=== PATIENT | female | born 1990 | race Caucasian/White ===

== ENCOUNTER 2017-02-05 14:56 | Emergency (ER) | payer MEDICAID, OTHER ==
[~2017-02-05 14:56] MED LIST: Z.0.NO CURRENT MEDS
--- NOTE | 2017-02-05 15:52 | PD ---
HPI Chief Complaint detox Date Seen: Feb 05, 2017 Time Seen: 15:45 Travel History International Travel<30 Days: No Contact w/Intl Traveler<30Days: No History of Present Illness HPI Patient is a 27 year old at 35 adn 5/7 weeks gestation by first trimester US (per pt report), EDC 03/07/2017, who presents to the OB ED with complaints of detox. She states she was using street oxycodone PO and snorting heroin before she was arrested at 3 months gestation. She was switched to methadone 105 mg daily while incarcerated and was released in October. She has continued methadone at that dose until 01/31/17. She was switched to oxycodone 15 mg PO every 4 hours, BuSpar unknown dose 3 times a day, Vistaril unknown dose 4 times daily PRN, and clonidine unknown dose 4 times daily PRN by Dr. Conley. She is feeling well today and denies any acute complaints but states last night she had withdrawal symptoms characterized by insomnia, diarrhea, and abdominal pain. She is not had any fevers, chills or vomiting. She denies leakage of fluid, vaginal bleeding, and contractions. She feels baby moving regularly. She denies DIAZ/N/V/D/fever/sick contacts/SOB/calf pain/ dizziness/seeing spots. Previous OB cares reportedly with Dr. Orta in [place] with last office visit in November. History Past Medical History Narrative Medical genital HSV Medical History: Denies Significant Hx Obstetric History Obstetric History [id number] miscarriages 2 elective abortions G6: CS for active herpetic outbreak, 7 years ago Past Surgical History Narrative Surgical Family History Family History: Negative Social History Narrative Social History living with family friend history heroin, oxycodone drug use incarcerated May - October 2016 Alcohol Use: No Tobacco Use: No Substance Abuse: Yes Allergies-Medications (Allergen,Severity, Reaction): Coded Allergies: No Known Allergies (Verified , 05/20/11) Home Meds Reported Medications Clonidine (Clonidine) Unknown Strength Tab, PO QID for Blood Pressure Management , #60 TAB 0 Refills 02/05/17 Buspirone (Buspirone) Unknown Strength Tab, PO BID for Anxiety, TAB 0 Refills 02/05/17 Hydroxyzine Pamoate (Vistaril) Unknown Strength Cap, PO QID, CAP 0 Refills 02/05/17 Oxycodone (Oxycodone) 15 Mg Tab, 15 MG PO Q4H Y for PAIN, TAB 0 Refills 02/05/17 Review of Systems Except as stated in HPI: all other systems reviewed are Neg Physical Exam Narrative GENERAL: Well-nourished, well-developed female in no apparent distress. SKIN: Warm and dry. No rashes or ecchymoses. HEAD: Normocephalic and atraumatic. EYES: No scleral icterus. No injection or drainage. ENT: No nasal drainage noted. Mucous membranes pink. Airway patent. NECK: Supple, trachea midline. No JVD. CARDIOVASCULAR: Regular rate and rhythm without murmurs, gallops, or rubs. RESPIRATORY: Breath sounds equal bilaterally. No accessory muscle use. ABDOMEN/GI: Gravid abdomen, nontender. Bowel sounds normal in all quadrants. GENITOURINARY: deferred External Genitalia: intact and normal in appearance Uterine Contractions: absent FHT's: Category: 1 Baseline:130s Reactive: 150s Variability: mod Decels: absent EXTREMITIES: No cyanosis or edema. BACK: Nontender without obvious deformity. No CVA tenderness. NEUROLOGICAL: Awake and alert. Motor and sensory grossly within normal limits. Five out of 5 muscle strength in all muscle groups. Normal speech. Data Data Vital Signs Reviewed: Yes (wnl) Orders Orders Vital Signs (Adult) .ON ADMISSION (02/05/17 15:43) ^ Labor Status (02/05/17 15:43) ^ Non Stress Test (02/05/17 15:43) ^ Hydration (02/05/17 15:43) MDM Medical Record Reviewed: Yes Narrative Course / MDM 27 year old at 35 and 5/7 weeks gestation by first trimester US (per pt report), EDC 03/07/2017, who presents to the OB ED with complaints of detox symptoms (diarrhea, abdominal pain) off methadone. Currently taking high dose oxycodone as noted in HPI. No contractions, Cat 1 tracing on exam. No infectious signs on evaluation. Intrauterine : Category 1 tracing Reassuring FHTs PN in [place] per report Obtain labs, OB US for HERBIE per Dr. Conley GBS unknown Substance Abuse: Consulted with Dr. Conley by phone. Patient is planning to go to [facility] and is in process of detoxification off methadone with oxycodone managed by Dr. Conley. Plan is to switch to Subutex prior to admission to [facility]. Dr. Conley to assume care of patient in February as patient is switching insurance at this time. Vital signs and monitoring within normal limits as noted above Will discharge patient home if US results reassuring DW Dr. Conley and Dr. Aguila Diagnosis Diagnosis: Primary Impression: 35 weeks gestation of Additional Impression: Methadone maintenance treatment affecting in third trimester Disposition: DISCHARGE HOME Condition: Stable Patient Instructions: Opioid Withdrawal (DC) Ruba Mcdonald MD R2 Feb 05, 2017 15:52
[2017-02-05] MEDS ORDERED: BUSP15TA PO (16:21)
[2017-02-05] MEDS ORDERED: VIST25CA PO (16:21)
[2017-02-05] MEDS ORDERED: CLON0.1T PO (16:21)
[2017-02-05] MEDS ORDERED: OXYC15TA PO (16:21)
[2017-02-05 18:28] LABS: AUTOMATED NEUTROPHIL # 9.2 TH/MM3 (1.8-7.7); BASOPHIL % 0.4 % (0.0-2.0); EOSINOPHIL # 0.2 TH/MM3 (0-0.4); EOSINOPHIL % 1.3 % (0.0-4.0); HEMATOCRIT 34.1 % (35.0-46.0); HEMOGLOBIN 12.1 GM/DL (11.6-15.3); LYMPH % 23.2 % (9.0-44.0); LYMPHOCYTE # 3.1 TH/MM3 (1.0-4.8); MEAN CELL VOLUME 84.3 FL (80.0-100.0); MEAN CORPUSCULAR HGB CONC 35.6 % (32.0-36.0); MEAN PLATELET VOLUME 8.2 FL (7.0-11.0); MONOCYTE # 0.8 TH/MM3 (0-0.9); NEUT % 69.1 % (16.0-70.0); PLATELET COUNT 269 TH/MM3 (150-450); RED BLOOD COUNT 4.05 MIL/MM3 (4.00-5.30); RED CELL DISTRIBUTION WIDTH 12.9 % (11.6-17.2); WHITE BLOOD COUNT 13.3 TH/MM3 (4.0-11.0)
[2017-02-06 10:16] LABS: HEPATITIS A AB IGM NEGATIVE (NEGATIVE); HEPATITIS B CORE AB IGM NEGATIVE (NEGATIVE); HEPATITIS B SURFACE ANTIGEN NEGATIVE (NEGATIVE); HEPATITIS C AB IgG NEGATIVE (NEGATIVE)
== END 2017-02-05 18:55 | disposition home or self-care (01) ==
LOC: HOBED 14:56
DX: O26.893 Other specified pregnancy related conditions, third trimester (principal); F11.23 Opioid dependence with withdrawal; Z3A.35 35 weeks gestation of pregnancy; Z79.899 Other long term (current) drug therapy
CPT/HCPCS: 59025; 76816; 76819; 80074; 80307; 85025; 86592; 86703; 86762; 86850; 86900; 86901

== ENCOUNTER 2017-02-11 11:53 | Inpatient (IN) | payer MEDICAID ==
[2017-02-11] VITALS (9 sets, daily range): BP systolic 94–121; BP diastolic 52–69; PULSE 77–109; RESP 16–18; TEMP 99.1
[~2017-02-11 11:53] MED LIST changes: +BUSP15TA PO; +CLON0.1T PO; +OXYC15TA PO; +VIST25CA PO; -Z.0.NO CURRENT MEDS
[2017-02-11] MEDS ORDERED: LORazepam 2 MG TAB PO ONE (12:30)
[2017-02-11] MEDS ORDERED: ACETAMINOPHEN 325 MG TAB PO PRN (12:30)
[2017-02-11] MEDS ORDERED: ONDANSETRON ODT 4 MG TAB PO PRN (12:30)
[2017-02-11] MEDS ORDERED: ALUMINUM/MAGNESIUM/SIMETH 30 ML CUP PO PRN (12:30)
[2017-02-11] MEDS ORDERED: SODIUM CHLORIDE 0.9% FLUSH 10 ML FLUSH IV FLUSH PRN (12:30)
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
[2017-02-11] MEDS: LACTATED RINGER'S 1000 ML INJ 1,000 ML IV SCH ×2 (13:30→15:04)
[2017-02-11] MEDS: BUPRENORPHINE HCL 8 MG SUBLINGUAL TAB SL SCH ×2 (13:42→19:36)
[2017-02-11] MEDS: BETAMETHASONE SOD PHOS/ACETATE SUSP 30 MG/5 ML VIAL IM SCH (13:43)
[2017-02-11 13:46] LABS: AUTOMATED NEUTROPHIL # 15.8 TH/MM3 (1.8-7.7); BASOPHIL # 0.1 TH/MM3 (0-0.2); BASOPHIL % 0.5 % (0.0-2.0); EOSINOPHIL % 0.2 % (0.0-4.0); LYMPHOCYTE # 2.3 TH/MM3 (1.0-4.8); MEAN CELL VOLUME 82.8 FL (80.0-100.0); MEAN CORPUSCULAR HEMOGLOBIN 28.5 PG (27.0-34.0); MEAN CORPUSCULAR HGB CONC 34.4 % (32.0-36.0); MEAN PLATELET VOLUME 7.7 FL (7.0-11.0); MONO % 3.6 % (0.0-8.0); MONOCYTE # 0.7 TH/MM3 (0-0.9); NEUT % 83.7 % (16.0-70.0); PLATELET COUNT 290 TH/MM3 (150-450); RED BLOOD COUNT 4.23 MIL/MM3 (4.00-5.30); RED CELL DISTRIBUTION WIDTH 13.3 % (11.6-17.2); WHITE BLOOD COUNT 18.8 TH/MM3 (4.0-11.0)
[2017-02-11 13:50] LABS: BILIRUBIN, URINE NEG (NEG); BLOOD, URINE NEG (NEG); GLUCOSE,URINE NEG (NEG); KETONE, URINE NEG (NEG); NITRITE,URINE NEG (NEG); SQUAMOUS EPITHELIAL CELL URINE 14 /hpf (0-5); TRANSITIONAL EPI CELLS, URINE <1 /hpf; URINE COLOR YELLOW (YELLW/STRAW); URINE LEUKOCYTE ESTERASE LARGE (NEG); WHITE BLOOD CELL CLUMPS RARE
[2017-02-11 14:14] LABS: ALBUMIN 2.7 GM/DL (3.4-5.0); ALT (GPT) 16 U/L (10-53); AST (GOT) 15 U/L (15-37); BICARBONATE 19.1 MEQ/L (21.0-32.0); BLOOD UREA NITROGEN 16 MG/DL (7-18); CALCIUM 8.8 MG/DL (8.5-10.1); CHLORIDE 111 MEQ/L (98-107); CREATININE 0.71 MG/DL (0.50-1.00); GLOMERULAR FILTRATION RATE 97 ML/MIN (>89); GLUCOSE,RANDOM 94 MG/DL (74-106); SODIUM (NA) 140 MEQ/L (136-145)
[2017-02-11 14:16] LABS: ALKALINE PHOSPHATASE 380 U/L (45-117); TOTAL BILIRUBIN ADULT 0.3 MG/DL (0.2-1.0); TOTAL PROTEIN 7.1 GM/DL (6.4-8.2)
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
[2017-02-11] MEDS: ZOLPIDEM TARTRATE 5 MG TAB PO PRN (20:50)
[2017-02-11] MEDS: SODIUM CHLORIDE 0.9% FLUSH 10 ML FLUSH IV FLUSH SCH (21:00)
[2017-02-11] MEDS ORDERED: BUPRENORPHINE HCL 8 MG SUBLINGUAL TAB SL SCH (22:00)
[2017-02-11] MEDS: cloNIDine HCL 0.1 MG TAB PO PRN (22:01)
[2017-02-12] VITALS (13 sets, daily range): BP systolic 106–124; BP diastolic 45–60; PULSE 85–102; RESP 16–20; TEMP 97.8–98.4
[2017-02-12] MEDS ORDERED: LORazepam 1 MG TAB PO ONE (01:45)
[2017-02-12] MEDS: BETAMETHASONE SOD PHOS/ACETATE SUSP 30 MG/5 ML VIAL IM SCH (01:48)
[2017-02-12] MEDS ORDERED: BUPRENORPHINE HCL 8 MG SUBLINGUAL TAB SL SCH (05:00)
--- NOTE | 2017-02-12 08:10 | PD.OB.ANTE ---
Subjective Diagnosis: (1) Third trimester (2) Opioid abuse (3) Previous delivery, antepartum Interval History 36 5/7 now post steroids x 2. No symptoms of withdrawal and comfortable at this time. questions about timing of delivery and where she will be (here, friend's home, [facility]) Objective Vital Signs Vital Signs Date Time Temp Pulse Resp B/P (MAP) Pulse Ox O2 Delivery O2 Flow Rate FiO2 02/12/17 01:22 98.0 02/12/17 01:21 97 112/60 (77) 02/12/17 01:20 18 02/11/17 19:40 99.1 18 02/11/17 17:00 18 02/11/17 16:36 97 94/52 (66) 02/11/17 16:30 109 02/11/17 15:00 16 02/11/17 14:31 77 104/60 (75) 02/11/17 12:57 18 02/11/17 12:30 81 121/69 (86) 02/11/17 12:25 97 Lab & Micro Results Test 02/11/17 13:30 White Blood Count 18.8 TH/MM3 Red Blood Count 4.23 MIL/MM3 Hemoglobin 12.0 GM/DL Hematocrit 35.0 % Mean Corpuscular Volume 82.8 FL Mean Corpuscular Hemoglobin 28.5 PG Mean Corpuscular Hemoglobin Concent 34.4 % Red Cell Distribution Width 13.3 % Platelet Count 290 TH/MM3 Mean Platelet Volume 7.7 FL Neutrophils (%) (Auto) 83.7 % Lymphocytes (%) (Auto) 12.0 % Monocytes (%) (Auto) 3.6 % Eosinophils (%) (Auto) 0.2 % Basophils (%) (Auto) 0.5 % Neutrophils # (Auto) 15.8 TH/MM3 Lymphocytes # (Auto) 2.3 TH/MM3 Monocytes # (Auto) 0.7 TH/MM3 Eosinophils # (Auto) 0.0 TH/MM3 Basophils # (Auto) 0.1 TH/MM3 CBC Comment DIFF FINAL Differential Comment Urine Color YELLOW Urine Turbidity HAZY Urine pH 7.0 Urine Specific [place] 1.017 Urine Protein TRACE mg/dL Urine Glucose (UA) NEG mg/dL Urine Ketones NEG mg/dL Urine Occult Blood NEG Urine Nitrite NEG Urine Bilirubin NEG Urine Urobilinogen LESS THAN 2.0 MG/DL Urine Leukocyte Esterase LARGE Urine WBC 4 /hpf Urine WBC Clumps RARE Urine Squamous Epithelial Cells 14 /hpf Urine Transitional Epithelial Cells <1 /hpf Microscopic Urinalysis Comment CULTURE INDICATED Blood Urea Nitrogen 16 MG/DL Creatinine 0.71 MG/DL Random Glucose 94 MG/DL Total Protein 7.1 GM/DL Albumin 2.7 GM/DL Calcium Level 8.8 MG/DL Alkaline Phosphatase 380 U/L Aspartate Amino Transf (AST/SGOT) 15 U/L Alanine Aminotransferase (ALT/SGPT) 16 U/L Total Bilirubin 0.3 MG/DL Sodium Level 140 MEQ/L Potassium Level 4.2 MEQ/L Chloride Level 111 MEQ/L Carbon Dioxide Level 19.1 MEQ/L Anion Gap 10 MEQ/L Estimat Glomerular Filtration Rate 97 ML/MIN Urine Opiates Screen NEG Urine Barbiturates Screen NEG Urine Amphetamines Screen NEG Urine Benzodiazepines Screen NEG Urine Cocaine Screen NEG Urine Cannabinoids Screen NEG Date/Time Source Procedure Growth Status 02/11/17 14:30 Throat Group A Streptococcus Screen Pending Received 02/11/17 13:30 Urine Clean Catch Urine Culture Pending Received Physical Exam GENERAL: Well-nourished, well-developed patient. CARDIOVASCULAR: Regular rate and rhythm without murmurs, gallops, or rubs. RESPIRATORY: Breath sounds equal bilaterally. No accessory muscle use. ABDOMEN/GI: Abdomen soft, non-tender. was 1/50/-1 last night strip reactive EXTREMITIES: No cyanosis or edema, non-tender, without signs of DVT. Assessment and Plan Problem List: (1) Third trimester ICD Codes: Z34.93 - Encounter for supervision of normal , unspecified , third trimester (2) Opioid abuse ICD Codes: F11.10 - Opioid abuse, uncomplicated (3) Previous delivery, antepartum ICD Codes: O34.219 - Maternal care for unspecified type scar from previous delivery Assessment and Plan Late trimester request to transition to buprenorphine --referred by SMA best performed with monitoring continuous Currently in active withdrawal and meeting criteria for buprenorphine induction support medications written monitoring anticipate discharge on buprenorphine to [facility] 02/11/17 18:40 reviewed we can increase the interval between the buprenorphine. discussed WARM vs returning to [facility] Dr. Jaffe has recommended delivery since HERBIE < 5 but I think it was from withdrawal. I would like to wait until Friday to get steroids in and to stabilize on subutex prior to delivery. She desires TOLAC ; may need to use cook balloon. Did deliver a non viable 20 week vaginally at 17 yoa. 02/12/17 0800 Continue 4 mg buprenorphine every 8 hours begin valtrex desires TOLAC oligo yesterday--repeat HERBIE today. Gilma Conley MD Feb 12, 2017 08:10
[2017-02-12] MEDS: SODIUM CHLORIDE 0.9% FLUSH 10 ML FLUSH IV FLUSH SCH ×2 (09:00→20:57)
[2017-02-12] MEDS ORDERED: MULTIVIT/MIN/PREN/FOL AC/IRON PRENATAL TAB PO SCH (09:00)
[2017-02-12] MEDS ORDERED: DOCUSATE SODIUM 100 MG CAP PO SCH (09:00)
[2017-02-12] MEDS: valACYclovir HCL 500 MG TAB PO SCH ×2 (09:00→20:57)
[2017-02-12] MEDS: cloNIDine HCL 0.1 MG TAB PO PRN (09:52)
[2017-02-12] MEDS: LACTATED RINGER'S 1000 ML INJ 1,000 ML IV SCH (11:00)
[2017-02-12] MEDS: BUPRENORPHINE HCL 8 MG SUBLINGUAL TAB SL SCH ×2 (11:33→19:36)
--- NOTE | 2017-02-12 13:21 | PD.OB.ANTE ---
Subjective Diagnosis: (1) Third trimester (2) Opioid abuse (3) Previous delivery, antepartum Interval History 36 5/7 HERBIE this am now 8 + cm. No indication for imminent delivery continue subutex and monitoring through tomorrow. back to [facility] tomorrow and will wait to hear from [facility] Objective Vital Signs Vital Signs Date Time Temp Pulse Resp B/P (MAP) Pulse Ox O2 Delivery O2 Flow Rate FiO2 02/12/17 09:00 98.4 16 02/12/17 08:47 100 106/59 (75) 02/12/17 01:22 98.0 02/12/17 01:21 97 112/60 (77) 02/12/17 01:20 18 02/11/17 19:40 99.1 18 02/11/17 17:00 18 02/11/17 16:36 97 94/52 (66) 02/11/17 16:30 109 02/11/17 15:00 16 02/11/17 14:31 77 104/60 (75) Lab & Micro Results Test 02/11/17 13:30 White Blood Count 18.8 TH/MM3 Red Blood Count 4.23 MIL/MM3 Hemoglobin 12.0 GM/DL Hematocrit 35.0 % Mean Corpuscular Volume 82.8 FL Mean Corpuscular Hemoglobin 28.5 PG Mean Corpuscular Hemoglobin Concent 34.4 % Red Cell Distribution Width 13.3 % Platelet Count 290 TH/MM3 Mean Platelet Volume 7.7 FL Neutrophils (%) (Auto) 83.7 % Lymphocytes (%) (Auto) 12.0 % Monocytes (%) (Auto) 3.6 % Eosinophils (%) (Auto) 0.2 % Basophils (%) (Auto) 0.5 % Neutrophils # (Auto) 15.8 TH/MM3 Lymphocytes # (Auto) 2.3 TH/MM3 Monocytes # (Auto) 0.7 TH/MM3 Eosinophils # (Auto) 0.0 TH/MM3 Basophils # (Auto) 0.1 TH/MM3 CBC Comment DIFF FINAL Differential Comment Urine Color YELLOW Urine Turbidity HAZY Urine pH 7.0 Urine Specific [place] 1.017 Urine Protein TRACE mg/dL Urine Glucose (UA) NEG mg/dL Urine Ketones NEG mg/dL Urine Occult Blood NEG Urine Nitrite NEG Urine Bilirubin NEG Urine Urobilinogen LESS THAN 2.0 MG/DL Urine Leukocyte Esterase LARGE Urine WBC 4 /hpf Urine WBC Clumps RARE Urine Squamous Epithelial Cells 14 /hpf Urine Transitional Epithelial Cells <1 /hpf Microscopic Urinalysis Comment CULTURE INDICATED Blood Urea Nitrogen 16 MG/DL Creatinine 0.71 MG/DL Random Glucose 94 MG/DL Total Protein 7.1 GM/DL Albumin 2.7 GM/DL Calcium Level 8.8 MG/DL Alkaline Phosphatase 380 U/L Aspartate Amino Transf (AST/SGOT) 15 U/L Alanine Aminotransferase (ALT/SGPT) 16 U/L Total Bilirubin 0.3 MG/DL Sodium Level 140 MEQ/L Potassium Level 4.2 MEQ/L Chloride Level 111 MEQ/L Carbon Dioxide Level 19.1 MEQ/L Anion Gap 10 MEQ/L Estimat Glomerular Filtration Rate 97 ML/MIN Urine Opiates Screen NEG Urine Barbiturates Screen NEG Urine Amphetamines Screen NEG Urine Benzodiazepines Screen NEG Urine Cocaine Screen NEG Urine Cannabinoids Screen NEG Date/Time Source Procedure Growth Status 02/11/17 14:30 Throat Group A Streptococcus Screen - Preliminary NO BETA STREPTOCOCCI ISOLATED AT 24 H... Resulted 02/11/17 13:30 Urine Clean Catch Urine Culture - Preliminary IMMATURE GROWTH - REINCUBATE Resulted Physical Exam GENERAL: Well-nourished, well-developed patient. CARDIOVASCULAR: Regular rate and rhythm without murmurs, gallops, or rubs. RESPIRATORY: Breath sounds equal bilaterally. No accessory muscle use. ABDOMEN/GI: Abdomen soft, non-tender. Fundus: [-] GENITOURINARY: External Genitalia: intact and normal in appearance Cervix: [-] Dilatation: [-] Effacement: [-] Station: [-] Presentation: [-] Membranes: [-] Uterine Contractions: [-] FHT's: Category: [-] Baseline: [-] Reactive: [-] Variability: [-] Decels: [-] EXTREMITIES: No cyanosis or edema, non-tender, without signs of DVT. Assessment and Plan Problem List: (1) Third trimester ICD Codes: Z34.93 - Encounter for supervision of normal , unspecified , third trimester (2) Opioid abuse ICD Codes: F11.10 - Opioid abuse, uncomplicated (3) Previous delivery, antepartum ICD Codes: O34.219 - Maternal care for unspecified type scar from previous delivery Assessment and Plan Late trimester request to transition to buprenorphine --referred by SMA best performed with monitoring continuous Currently in active withdrawal and meeting criteria for buprenorphine induction support medications written monitoring anticipate discharge on buprenorphine to [facility] 02/11/17 18:40 reviewed we can increase the interval between the buprenorphine. discussed [facility] vs returning to [facility] Dr. Jaffe has recommended delivery since HERBIE < 5 but I think it was from withdrawal. I would like to wait until Friday to get steroids in and to stabilize on subutex prior to delivery. She desires TOLAC ; may need to use cook balloon. Did deliver a non viable 20 week vaginally at 19 yoa. 02/12/17 0800 Continue 4 mg buprenorphine every 8 hours begin valtrex desires TOLAC oligo yesterday--repeat HERBIE today. Gilma Conley MD Feb 12, 2017 13:21
--- NOTE | 2017-02-12 17:20 | PD.OB.ANTE ---
Subjective Diagnosis: (1) Third trimester (2) Opioid abuse (3) Previous delivery, antepartum Interval History Distraught after being told by crop setting out machine operator Jaja that she may not be able to take infant home due to prior child with TPR.. This is not the case. Also upset after discussion with Dr. Jenkins from psychiatry. we will add back her buspar and address depression more completely when baby delivered. Objective Vital Signs Vital Signs Date Time Temp Pulse Resp B/P (MAP) Pulse Ox O2 Delivery O2 Flow Rate FiO2 02/12/17 13:53 18 02/12/17 13:05 85 124/48 (73) 02/12/17 09:00 98.4 16 02/12/17 08:47 100 106/59 (75) 02/12/17 01:22 98.0 02/12/17 01:21 97 112/60 (77) 02/12/17 01:20 18 02/11/17 19:40 99.1 18 Lab & Micro Results Date/Time Source Procedure Growth Status 02/11/17 14:30 Throat Group A Streptococcus Screen - Preliminary NO BETA STREPTOCOCCI ISOLATED AT 24 H... Resulted 02/11/17 13:30 Urine Clean Catch Urine Culture - Preliminary IMMATURE GROWTH - REINCUBATE Resulted Physical Exam GENERAL: Well-nourished, well-developed patient. CARDIOVASCULAR: Regular rate and rhythm without murmurs, gallops, or rubs. RESPIRATORY: Breath sounds equal bilaterally. No accessory muscle use. ABDOMEN/GI: Abdomen soft, non-tender. Fundus: [-] GENITOURINARY: External Genitalia: intact and normal in appearance Cervix: [-] Dilatation: [-] Effacement: [-] Station: [-] Presentation: [-] Membranes: [-] Uterine Contractions: [-] FHT's: Category: [-] Baseline: [-] Reactive: [-] Variability: [-] Decels: [-] EXTREMITIES: No cyanosis or edema, non-tender, without signs of DVT. Assessment and Plan Problem List: (1) Third trimester ICD Codes: Z34.93 - Encounter for supervision of normal , unspecified , third trimester (2) Opioid abuse ICD Codes: F11.10 - Opioid abuse, uncomplicated (3) Previous delivery, antepartum ICD Codes: O34.219 - Maternal care for unspecified type scar from previous delivery Assessment and Plan Late trimester request to transition to buprenorphine --referred by SMA best performed with monitoring continuous Currently in active withdrawal and meeting criteria for buprenorphine induction support medications written monitoring anticipate discharge on buprenorphine to [facility] 02/11/17 18:40 reviewed we can increase the interval between the buprenorphine. discussed WARM vs returning to [facility] Dr. Jaffe has recommended delivery since HERBIE < 5 but I think it was from withdrawal. I would like to wait until Friday to get steroids in and to stabilize on subutex prior to delivery. She desires TOLAC ; may need to use cook balloon. Did deliver a non viable 20 week vaginally at 19 yoa. 02/12/17 0800 Continue 4 mg buprenorphine every 8 hours begin valtrex desires TOLAC oligo yesterday--repeat HERBIE today. Gilma Conley MD Feb 12, 2017 17:20
[2017-02-12] MEDS ORDERED: BUPR8SUB SL (17:22)
--- NOTE | 2017-02-12 17:23 | HHI.DCPOC ---
Discharge Care Plan Report Symptoms to Your Doctor -Temperature above 100.5 degrees -Redness, of incision or excessive or foul smelling drainage -Unusual pain or calf pain -Increased vaginal bleeding -Painful or difficulty urinating -Feelings of extreme sadness or anxiety after 2 weeks Goals to Promote Your Health * To prevent worsening of your condition and complications * To maintain your health at the optimal level Directions to Meet Your Goals Take your medications as prescribed Follow your dietary instruction Follow activity as directed Ensure plenty of rest for recovery Drink fluids for hydration Keep your appointments as scheduled Take your immunizations and boosters as scheduled If your symptoms worsen call your PCP, if no PCP go to Urgent Care Center or Emergency Room Smoking is Dangerous to Your Health. Avoid second hand smoke Call the 24-hour crisis hotline for domestic abuse at Gilma Conley MD Feb 12, 2017 17:23
[2017-02-12] MEDS: busPIRone HCL 10 MG TAB PO SCH ×2 (17:39→17:40)
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
[2017-02-12] MEDS: ZOLPIDEM TARTRATE 5 MG TAB PO PRN (20:57)
[2017-02-13] MEDS ORDERED: ACETAMIN 325 MG/BUTALBITAL 50 MG/CAFFEINE 40 MG TAB PO ONE ×2 (03:30→08:30)
[2017-02-13 03:38] VITALS: BP 121/66; PULSE 68
[2017-02-13 03:40] VITALS: RESP 18; TEMP 97.4
[2017-02-13] MEDS: SODIUM CHLORIDE 0.9% FLUSH 10 ML FLUSH IV FLUSH SCH (07:40)
[2017-02-13 07:59] VITALS: TEMP 98.3
[2017-02-13 08:00] VITALS: RESP 18
[2017-02-13 08:01] VITALS: BP 136/55; PULSE 70
--- NOTE | 2017-02-13 08:17 | PD.OB.ANTE ---
Subjective Diagnosis: (1) Third trimester (2) Opioid abuse (3) Previous delivery, antepartum Interval History 36 6/7 week IUP now on buprenorphine 12-16 mg daily, buspar and valtrex surveillance reassuring WARM not available until after the first. Has a place to stay and be cared for with family friend Today complaining of severe DIAZ (worst ever) but ordering breakfast and moving around room No leaking, bleeding. GFM Occasional UCs Objective Vital Signs Vital Signs Date Time Temp Pulse Resp B/P (MAP) Pulse Ox O2 Delivery O2 Flow Rate FiO2 02/13/17 03:40 97.4 18 02/13/17 03:38 68 121/66 (84) 02/12/17 22:00 18 02/12/17 21:54 101 112/45 (67) 02/12/17 19:24 97.8 02/12/17 19:23 98 18 119/59 (79) 02/12/17 17:42 98.0 20 02/12/17 17:42 102 113/58 (76) 02/12/17 14:00 98.0 02/12/17 13:53 18 02/12/17 13:05 85 124/48 (73) 02/12/17 09:00 98.4 16 02/12/17 08:47 100 106/59 (75) Lab & Micro Results Date/Time Source Procedure Growth Status 02/11/17 14:30 Throat Group A Streptococcus Screen - Preliminary NO BETA STREPTOCOCCI ISOLATED AT 24 H... Resulted 02/11/17 13:30 Urine Clean Catch Urine Culture - Preliminary IMMATURE GROWTH - REINCUBATE Resulted Physical Exam GENERAL: Well-nourished, well-developed patient. strip reactive with accels and no decels was 50% 1/-2 Assessment and Plan Problem List: (1) Third trimester ICD Codes: Z34.93 - Encounter for supervision of normal , unspecified , third trimester (2) Opioid abuse ICD Codes: F11.10 - Opioid abuse, uncomplicated (3) Previous delivery, antepartum ICD Codes: O34.219 - Maternal care for unspecified type scar from previous delivery Assessment and Plan Late trimester request to transition to buprenorphine --referred by SMA best performed with monitoring continuous Currently in active withdrawal and meeting criteria for buprenorphine induction support medications written monitoring anticipate discharge on buprenorphine to [facility] 02/11/17 18:40 reviewed we can increase the interval between the buprenorphine. discussed WARM vs returning to [facility] Dr. Jaffe has recommended delivery since HERBIE < 5 but I think it was from withdrawal. I would like to wait until Friday to get steroids in and to stabilize on subutex prior to delivery. She desires TOLAC ; may need to use cook balloon. Did deliver a non viable 20 week vaginally at 19 yoa. 02/12/17 0800 Continue 4 mg buprenorphine every 8 hours begin valtrex desires TOLAC oligo yesterday--repeat HERBIE today. 02/13/17 0800 To [facility] today on meds as described follow up in one week in my office explained needs to stop at office today to get UDS and contract sign that are needed for us to obtain pre authorization and coverage for her subutex. [facility] will cover until insurance covers. desires TOLAC and will consider if favorable after 39 weeks. Gilma Conley MD Feb 13, 2017 08:17
[2017-02-13] MEDS: BUPRENORPHINE HCL 8 MG SUBLINGUAL TAB SL SCH (08:28)
== END 2017-02-13 08:41 | disposition home or self-care (01) | DRG 781 ==
LOC: H2EA 11:53 → OBSVTOIN 12:36
PROVIDERS: ADMIT Obstetrics & Gynecology; ATTEND Obstetrics & Gynecology
DX: O99.323 Drug use complicating pregnancy, third trimester (principal); O99.89 Other specified diseases and conditions complicating pregnancy, childbirth and the puerperium; F11.23 Opioid dependence with withdrawal; O34.219 Maternal care for unspecified type scar from previous cesarean delivery; O99.333 Smoking (tobacco) complicating pregnancy, third trimester; O99.343 Other mental disorders complicating pregnancy, third trimester; F41.9 Anxiety disorder, unspecified; F32.9 Major depressive disorder, single episode, unspecified; F43.21 Adjustment disorder with depressed mood; F43.10 Post-traumatic stress disorder, unspecified; Z63.8 Other specified problems related to primary support group; R11.2 Nausea with vomiting, unspecified; R19.7 Diarrhea, unspecified; Z3A.36 36 weeks gestation of pregnancy
CPT/HCPCS: 76819; 80053; 80307; 81001; 85025; 87081; 87086; 87880; G0481; J0702; J7120

== ENCOUNTER 2017-02-25 18:15 | Emergency (ER) | payer MEDICAID, OTHER ==
[~2017-02-25 18:15] MED LIST changes: +BUPR8SUB SL; -OXYC15TA PO
--- NOTE | 2017-02-25 19:04 | PD ---
HPI Chief Complaint Contractions Date Seen: Feb 25, 2017 Time Seen: 18:59 Travel History International Travel<30 Days: No Contact w/Intl Traveler<30Days: No Known Affected Area: No History of Present Illness HPI 27-year-old at 38 weeks and 4 days comes in complaining of contractions that began after her vaginal examination this morning. Patient was noted to be 1 cm this morning and her exam and thereafter had some mild spotting followed by cramping irregularly throughout the day. No, cases during this . Maintain on Subutex taking care of by Dr. Conley. Weeks Gestation: 38 (38.4) Para: 2 : 4 : 1 History Past Medical History Medical History: Denies Significant Hx Obstetric History Obstetric History section 1 at 22 weeks due to hydrops Past Surgical History Narrative Surgical section Family History Family History: Negative Social History Alcohol Use: No Tobacco Use: No Substance Abuse: Yes Allergies-Medications (Allergen,Severity, Reaction): Coded Allergies: No Known Allergies (Verified Allergy, Unknown, 02/11/17) Home Meds Active Scripts Buprenorphine (Buprenorphine) 8 Mg Subl, 4 MG SL Q8H for maintenance for addiction ther for 14 Days, #21 TAB Prov:Gilma Conley MD 02/12/17 Reported Medications Clonidine (Clonidine) Unknown Strength Tab, PO QID for Blood Pressure Management , #60 TAB 0 Refills 02/05/17 Buspirone (Buspirone) Unknown Strength Tab, PO BID for Anxiety, TAB 0 Refills 02/05/17 Hydroxyzine Pamoate (Vistaril) Unknown Strength Cap, PO QID, CAP 0 Refills 02/05/17 Review of Systems Except as stated in HPI: all other systems reviewed are Neg Physical Exam Narrative GENERAL: Well-nourished, well-developed patient. SKIN: Warm and dry. HEAD: Normocephalic and atraumatic. EYES: No scleral icterus. No injection or drainage. ENT: No nasal drainage noted. Mucous membranes pink. Airway patent. NECK: Supple, trachea midline. No JVD. CARDIOVASCULAR: Regular rate and rhythm without murmurs, gallops, or rubs. RESPIRATORY: Breath sounds equal bilaterally. No accessory muscle use. ABDOMEN/GI: Abdomen soft, non-tender, bowel sounds present, no rebound, no guarding Gravid to [37-] weeks size Fundal Height: [-] GENITOURINARY: External Genitalia: intact and normal in appearance BUS glands: [Normal-] Cervix: [-] Posterior Dilatation: [-] 1 Effacement: [-] 50 Station: [-] -3 Presentation: [-] Vertex Membranes: [intact or ruptured] intact Uterine Contractions: [-] Rare contractions every 10-15 minutes FHT's: Category: [-] 1 Baseline: [-] 140 Reactive: [-] Moderate Variability: [-] Moderate Decels: [-] Absent EXTREMITIES: No cyanosis or edema. BACK: Nontender without obvious deformity. No CVA tenderness. NEUROLOGICAL: Awake and alert. Motor and sensory grossly within normal limits. Five out of 5 muscle strength in all muscle groups. Normal speech. Data Data Vital Signs Reviewed: Yes [facility] Medical Record Reviewed: Yes Plan 27-year-old who is at 38 weeks 4 days with false labor Follow-up with OB provider as scheduled Diagnosis Diagnosis: Primary Impression: 38 weeks gestation of Additional Impressions: Opioid abuse Previous section complicating , antepartum condition or complication False labor after 37 completed weeks of gestation Disposition: 01 DISCHARGE HOME Stacey Aguila MD Feb 25, 2017 19:04
== END 2017-02-25 19:33 | disposition home or self-care (01) ==
LOC: HOBED 18:15
DX: O47.1 False labor at or after 37 completed weeks of gestation (principal); O99.323 Drug use complicating pregnancy, third trimester; F11.10 Opioid abuse, uncomplicated; O34.219 Maternal care for unspecified type scar from previous cesarean delivery; Z3A.38 38 weeks gestation of pregnancy
CPT/HCPCS: 59025

== ENCOUNTER 2017-03-04 06:39 | Inpatient (IN) | payer MEDICAID, OTHER ==
[~2017-03-04] VITALS: Ht 180.3 cm; Wt 74.0 kg
[2017-03-04] VITALS (119 sets, daily range): BP systolic 101–153; BP diastolic 43–91; PULSE 85–137; RESP 16–20; TEMP 97.6–102
[2017-03-04] MEDS ORDERED: LACTATED RINGER'S 1000 ML INJ 1,000 ML IV PRN (08:18)
[2017-03-04] MEDS ORDERED: LIDOCAINE HCL 1% 50 ML VIAL INFIL PRN (08:30)
[2017-03-04] MEDS ORDERED: SODIUM CHLORID 0.9% 500 ML INJ 500 ML IV PRN (08:30)
[2017-03-04] MEDS ORDERED: CITRIC ACID-SODIUM CITRATE LIQ 30 ML UDC PO SCH (08:30)
[2017-03-04] MEDS ORDERED: MINERAL OIL 10 ML VIAL TOPICAL PRN (08:30)
[2017-03-04] MEDS ORDERED: OXYTOCIN 30 UNITS-500ML PREMIX 500 ML IV ONE (08:30)
[2017-03-04] MEDS ORDERED: OXYTOCIN 30 UNITS-500ML PREMIX 500 ML IV PRN (08:30)
[2017-03-04] MEDS ORDERED: LIDOCAINE HCL 1% 50 ML VIAL I-DERMAL PRN (08:30)
--- NOTE | 2017-03-04 08:33 | HHI.HP ---
HPI Chief Complaint 27 yo swf at 39 4/7 weeks desiring TOLAC. She is subutex maintained for opioid abuse disorder and compliant. She had a loss, delivered vaginally and a subsequent section with Dr. Weinstein for distress. States she became dependent on percocet after that delivery and then descended to IV dilaudid. She was a resident and graduated from [facility] prior to this delivery. She was referred to me by Yashira Randolph of [facility] to see if I could transition to buprenorphine and prepare for residential treatment this . The patient has chosen outpatient therapy until after delivery. She has severe PTSD over loss of first child and traumatic loss of FOB of this child. She desires TOLAC with a minimally favorable cervix today. Travel History International Travel<30 Days: No Contact w/Intl Traveler<30Days: No Known Affected Area: No History of Present Illness HPI No PTL, Diabetes or HTN late care Weeks Gestation: 39 History Past Medical History Narrative Medical Opioid use disorder MDD PTSD Medical History: Denies Significant Hx Past Surgical History Narrative Surgical section term x 1 documented LTSC Family History Family History: Negative Social History Alcohol Use: No Tobacco Use: Yes Substance Abuse: Yes Allergies-Medications (Allergen,Severity, Reaction): Coded Allergies: No Known Allergies (Verified Allergy, Unknown, 02/11/17) Home Meds Active Scripts Buprenorphine (Buprenorphine) 8 Mg Subl, 4 MG SL Q8H for maintenance for addiction ther for 14 Days, #21 TAB Prov:Gilma Conley MD 02/12/17 Reported Medications Clonidine (Clonidine) Unknown Strength Tab, PO QID for Blood Pressure Management , #60 TAB 0 Refills 02/05/17 Buspirone (Buspirone) Unknown Strength Tab, PO BID for Anxiety, TAB 0 Refills 02/05/17 Hydroxyzine Pamoate (Vistaril) Unknown Strength Cap, PO QID, CAP 0 Refills 02/05/17 Review of Systems General / Constitutional: No: Fever, Weight Gain, Chills, Other Physical Exam Narrative GENERAL: Well-nourished, well-developed patient. SKIN: Warm and dry. HEAD: Normocephalic and atraumatic. EYES: No scleral icterus. No injection or drainage. ENT: No nasal drainage noted. Mucous membranes pink. Airway patent. NECK: Supple, trachea midline. No JVD. CARDIOVASCULAR: Regular rate and rhythm without murmurs, gallops, or rubs. RESPIRATORY: Breath sounds equal bilaterally. No accessory muscle use. BREASTS: Bilateral exam showed no masses , no retractions, no nipple discharge. ABDOMEN/GI: Abdomen soft, non-tender, bowel sounds present, no rebound, no guarding Gravid to [-] weeks size Fundal Height: [-] GENITOURINARY: 1-2/long/posterior and arom clear EFW 7 pounds pelvis clinically adequate Strip category 1 so far EXTREMITIES: No cyanosis or edema. BACK: Nontender without obvious deformity. No CVA tenderness. NEUROLOGICAL: Awake and alert. Motor and sensory grossly within normal limits. Five out of 5 muscle strength in all muscle groups. Normal speech. Caprini VTE Risk Assessment Caprini VTE Risk Assessment: No/Low Risk (score <= 1) Caprini Risk Assessment Model Point Value = 1 Point Value = 2 Point Value = 3 Point Value = 5 Age 41-60 Minor surgery BMI > 25 kg/m2 Swollen legs Varicose veins or History of unexplained or recurrent spontaneous Oral contraceptives or hormone replacement Sepsis (< 1 month) Serious lung disease, including pneumonia (< 1 month) Abnormal pulmonary function Acute myocardial infarction Congestive heart failure (< 1 month) History of inflammatory bowel disease Medical patient at bed rest Age 61-74 Arthroscopic surgery Major open surgery (> 45 min) Laparoscopic surgery (> 45 min) Malignancy Confined to bed (> 72 hours) Immobilizing plaster cast Central venous access Age >= 75 History of VTE Family history of VTE Factor V Leiden Prothrombin [id number] Lupus anticoagulant Anticardiolipin antibodies Elevated serum homocysteine Heparin-induced thrombocytopenia Other congenital or acquired thrombophilia Stroke (< 1 month) Elective arthroplasty Hip, pelvis, or leg fracture Acute spinal cord injury (< 1 month) Prophylaxis Regimen Total Risk Factor Score Risk Level Prophylaxis Regimen 0-1 Low Early ambulation 2 Moderate Order ONE of the following: *Sequential Compression Device (SCD) *Heparin 5000 units SQ BID 3-4 Higher Order ONE of the following medications: *Heparin 5000 units SQ TID *Enoxaparin/Lovenox 40 mg SQ daily (WT < 150 kg, CrCl > 30 mL/min) *Enoxaparin/Lovenox 30 mg SQ daily (WT < 150 kg, CrCl > 10-29 mL/min) *Enoxaparin/Lovenox 30 mg SQ BID (WT < 150 kg, CrCl > 30 mL/min) AND/OR *Sequential Compression Device (SCD) 5 or more Highest Order ONE of the following medications: *Heparin 5000 units SQ TID (Preferred with Epidurals) *Enoxaparin/Lovenox 40 mg SQ daily (WT < 150 kg, CrCl > 30 mL/min) *Enoxaparin/Lovenox 30 mg SQ daily (WT < 150 kg, CrCl > 10-29 mL/min) *Enoxaparin/Lovenox 30 mg SQ BID (WT < 150 kg, CrCl > 30 mL/min) AND *Sequential Compression Device (SCD) Data Data Orders Orders Admit To Inpatient (03/04/17 ) Code Status (03/04/17 08:18) Vital Signs (Adult) .Per protocol (03/04/17 08:18) Heart (03/04/17 08:18) Amnioinfusion (03/04/17 08:18) Urinary Catheter Management .ONCE (03/04/17 08:18) Diet Liquid (03/04/17 Breakfast) Lactated Ringer's 1000 Ml Inj (Lr 1000 M (03/04/17 08:18) Lactated Ringer's 1000 Ml Inj (Lr 1000 M (03/04/17 08:18) Sodium Chlorid 0.9% 500 Ml Inj (Ns 500 M (03/04/17 08:30) Sodium Chlor 0.9% 1000 Ml Inj (Ns 1000 M (03/04/17 08:38) Lidocaine 1% Inj (50 Ml) (Xylocaine 1% I (03/04/17 08:30) Citric Acid-Sodium Citrate Liq (Bicitra (03/04/17 08:30) Fentanyl Inj (Fentanyl Inj) (03/04/17 08:30) Fentanyl Inj (Fentanyl Inj) (03/04/17 08:30) Complete Blood Count With Diff (03/04/17 08:18) Hold Clot (03/04/17 08:18) Abo/Rh Blood Type (03/04/17 08:18) Urinalysis - C+S If Indicated (03/04/17 08:18) Drug Screen, Random Urine (03/04/17 08:18) Type And Screen (1/16/18 08:18) Resp Oxygen Non Rebreathe Mask (03/04/17 ) ^ Epidural / Intrathecal Infus (03/04/17 08:18) Oxytocin 30 Units-500ml Premix (Pitocin (03/04/17 08:30) Lidocaine 1% Inj (50 Ml) (Xylocaine 1% I (03/04/17 08:30) Light Mineral Oil (Muri-Lube Oil) (03/04/17 08:30) ^ Non Stress Test (03/04/17 08:18) Response To Medication .Post New Med Administration, Reaction (03/04/17 08:18) ^ Discontinue Medication (03/04/17 08:18) Oxytocin 30 Units-500ml Premix (Pitocin (03/04/17 08:30) Inpatient Certification (03/04/17 ) Specimen To Be Collected PRN (03/04/17 08:18) Specimen To Be Collected PRN (03/04/17 08:18) Buprenorphine (Buprenorphine) (03/04/17 09:00) Buspirone (Buspar) (03/04/17 09:00) Assessment/Plan Assessment and Plan term for TOLAC aware of risks, benefits and alternatives can change mind any time continue subutex epidural and pit as indicated Gilma Conley MD Mar 04, 2017 08:33
[2017-03-04] MEDS ORDERED: SODIUM CHLOR 0.9% 1000 ML INJ 1,000 ML IV PRN (08:38)
[2017-03-04] MEDS ORDERED: LIDOCAINE HCL 1% 30 ML VIAL INFIL PRN (09:00)
[2017-03-04] MEDS ORDERED: LIDOCAINE HCL 1% 30 ML VIAL I-DERMAL PRN (09:00)
[2017-03-04 09:03] LABS: BASOPHIL # 0.1 TH/MM3 (0-0.2); BASOPHIL % 0.7 % (0.0-2.0); EOSINOPHIL # 0.1 TH/MM3 (0-0.4); EOSINOPHIL % 1.2 % (0.0-4.0); HEMATOCRIT 32.3 % (35.0-46.0); HEMOGLOBIN 11.3 GM/DL (11.6-15.3); LYMPH % 28.9 % (9.0-44.0); LYMPHOCYTE # 3.3 TH/MM3 (1.0-4.8); MEAN CELL VOLUME 83.7 FL (80.0-100.0); MEAN CORPUSCULAR HEMOGLOBIN 29.4 PG (27.0-34.0); MEAN CORPUSCULAR HGB CONC 35.1 % (32.0-36.0); MEAN PLATELET VOLUME 8.2 FL (7.0-11.0); MONO % 7.1 % (0.0-8.0); MONOCYTE # 0.8 TH/MM3 (0-0.9); NEUT % 62.1 % (16.0-70.0); PLATELET COUNT 248 TH/MM3 (150-450); RED BLOOD COUNT 3.86 MIL/MM3 (4.00-5.30); RED CELL DISTRIBUTION WIDTH 14.2 % (11.6-17.2); WHITE BLOOD COUNT 11.3 TH/MM3 (4.0-11.0)
[2017-03-04] MEDS: LACTATED RINGER'S 1000 ML INJ 1,000 ML IV SCH ×4 (09:27→23:26)
[2017-03-04 09:29] LABS: BILIRUBIN, URINE NEG (NEG); BLOOD, URINE SMALL (NEG); GLUCOSE,URINE NEG (NEG); KETONE, URINE NEG (NEG); MUCUS URINE FEW /lpf (OCC); NITRITE,URINE NEG (NEG); SQUAMOUS EPITHELIAL CELL URINE 21 /hpf (0-5); URINE COLOR YELLOW (YELLW/STRAW); URINE LEUKOCYTE ESTERASE TRACE (NEG)
[2017-03-04 09:31] LABS: BACTERIA, URINE FEW /hpf
[2017-03-04] MEDS: BUPRENORPHINE HCL 8 MG SUBLINGUAL TAB SL SCH ×4 (09:31→22:25)
[2017-03-04] MEDS: busPIRone HCL 10 MG TAB PO SCH ×2 (09:31→22:25)
[2017-03-04] MEDS ORDERED: cloNIDine HCL 0.1 MG TAB PO PRN (16:30)
[2017-03-04] MEDS ORDERED: fentaNYL 2MCG-BUPIV 0.125% INJ 100 ML ONE (17:44)
--- NOTE | 2017-03-04 18:07 | PD.LABORPN ---
Subjective Subjective getting very painful strip reassuring on 14 mu/min pitocin Objective Vital Signs Vital Signs Date Time Temp Pulse Resp B/P (MAP) Pulse Ox O2 Delivery O2 Flow Rate FiO2 03/04/17 17:53 153/90 (111) 03/04/17 17:53 95 03/04/17 17:50 103 03/04/17 17:45 107 03/04/17 16:55 101 03/04/17 16:50 92 03/04/17 16:45 99 03/04/17 16:10 109 03/04/17 16:10 105 117/72 (87) 03/04/17 16:05 105 03/04/17 15:50 101 03/04/17 15:45 105 03/04/17 15:10 98 03/04/17 15:05 105 03/04/17 15:04 107 147/91 (109) 03/04/17 15:00 95 03/04/17 14:55 94 03/04/17 14:50 95 03/04/17 14:45 92 03/04/17 14:37 97 132/86 (101) 03/04/17 14:35 100 03/04/17 14:30 102 03/04/17 14:15 98 03/04/17 14:10 89 03/04/17 14:05 94 03/04/17 14:04 94 134/88 (103) 03/04/17 14:00 95 03/04/17 13:55 102 03/04/17 13:50 104 03/04/17 13:45 96 03/04/17 13:37 92 127/81 (96) 03/04/17 13:35 93 03/04/17 13:30 96 03/04/17 13:25 94 03/04/17 13:20 96 03/04/17 13:15 94 03/04/17 13:00 98.2 03/04/17 12:55 86 03/04/17 12:50 91 03/04/17 12:45 85 03/04/17 12:25 87 03/04/17 12:20 89 03/04/17 12:15 96 03/04/17 11:59 91 131/71 (91) 03/04/17 11:55 91 03/04/17 11:50 92 03/04/17 11:45 100 03/04/17 11:40 98 03/04/17 11:35 94 03/04/17 11:33 95 127/81 (96) 03/04/17 11:30 101 03/04/17 11:25 95 03/04/17 11:20 101 03/04/17 11:15 97.8 03/04/17 10:57 99 129/73 (91) 03/04/17 10:55 105 03/04/17 10:50 96 03/04/17 10:45 102 03/04/17 10:40 112 03/04/17 10:35 103 03/04/17 10:30 104 03/04/17 10:25 98 03/04/17 10:20 102 03/04/17 10:15 106 03/04/17 10:10 104 03/04/17 10:05 108 Objective per RN -3/60%/2 cm softer strip reassuring Weeks Gestation: 39 Gest Age Assessed Date: Mar 04, 2017 Pt started active labor?: Yes Active labor start date: Mar 04, 2017 Active labor start time: 08:00 Medical induction of labor?: Yes Medical induction start date: Mar 04, 2017 Medical induction start time: 08:00 Artificial rupture of membrane: Yes Artificial ROM date: Mar 04, 2017 Artifical ROM time: 08:00 Assessment/Plan Assessment and Plan will dicuss options: no cervical change since 8 am with arom. on 14 mu/min pit Needs IUPC if desires to continue will discuss that I am leaving town at 5 am. risks, benefits and expectations of continuing to work toward active labor vs repeat C/S discussed. Giving her some time to decide. Gilma Conley MD Mar 04, 2017 18:07
[2017-03-04] MEDS ORDERED: ePHEDrine/NS 25 MG/5 ML SYRINGE IV PUSH PRN (19:00)
[2017-03-04] MEDS ORDERED: NO SYSTEM NARCOTICS PRN (19:00)
[2017-03-04] MEDS ORDERED: DO NOT ADMINISTER ANTICOAGULANTS PRN (19:00)
[2017-03-04] MEDS: fentaNYL 2MCG-BUPIV 0.125% 100 ML EPIDURAL SCH (19:09)
--- NOTE | 2017-03-04 19:33 | PD.LABORPN ---
Subjective Subjective Has done very well since epidural in place Objective Vital Signs Vital Signs Date Time Temp Pulse Resp B/P (MAP) Pulse Ox O2 Delivery O2 Flow Rate FiO2 03/04/17 19:09 16 03/04/17 19:01 120 101/43 (62) 03/04/17 18:45 117 116/62 (80) 03/04/17 18:30 98.2 115 102/58 (73) 03/04/17 18:26 16 03/04/17 18:25 118 03/04/17 18:25 107/66 (80) 03/04/17 18:20 111/63 (79) 03/04/17 18:20 104 03/04/17 18:15 128 126/64 (84) 03/04/17 18:15 104 03/04/17 18:12 100 128/69 (88) 03/04/17 18:10 112 125/56 (79) 03/04/17 18:10 96 03/04/17 18:07 102 149/79 (102) 03/04/17 18:05 99 03/04/17 18:00 109 03/04/17 17:55 99 03/04/17 17:53 153/90 (111) 03/04/17 17:53 95 03/04/17 17:50 103 03/04/17 17:45 107 03/04/17 16:55 101 03/04/17 16:50 92 03/04/17 16:45 99 03/04/17 16:30 98.2 18 03/04/17 16:10 109 03/04/17 16:10 105 117/72 (87) 03/04/17 16:05 105 03/04/17 15:50 101 03/04/17 15:45 105 03/04/17 15:10 98 03/04/17 15:05 105 03/04/17 15:04 107 147/91 (109) 03/04/17 15:00 97.6 18 03/04/17 15:00 95 03/04/17 14:55 94 03/04/17 14:50 95 03/04/17 14:45 92 03/04/17 14:37 97 132/86 (101) 03/04/17 14:35 100 03/04/17 14:30 102 03/04/17 14:15 98 03/04/17 14:10 89 03/04/17 14:05 94 03/04/17 14:04 94 134/88 (103) 03/04/17 14:00 95 03/04/17 13:55 102 03/04/17 13:50 104 03/04/17 13:45 96 03/04/17 13:37 92 127/81 (96) 03/04/17 13:35 93 03/04/17 13:30 96 03/04/17 13:25 94 03/04/17 13:20 96 03/04/17 13:15 94 03/04/17 13:00 98.2 03/04/17 12:55 86 03/04/17 12:50 91 03/04/17 12:45 85 03/04/17 12:25 87 03/04/17 12:20 89 03/04/17 12:15 96 03/04/17 11:59 91 131/71 (91) 03/04/17 11:55 91 03/04/17 11:50 92 03/04/17 11:45 100 03/04/17 11:40 98 03/04/17 11:35 94 03/04/17 11:33 95 127/81 (96) 03/04/17 11:30 101 Objective 3-4/90/-1 anterior and well applied strip reactive contractions every 2 minutes and labor adequate with IUPC in place Weeks Gestation: 39 Gest Age Assessed Date: Mar 04, 2017 Pt started active labor?: Yes Active labor start date: Mar 04, 2017 Active labor start time: 08:00 Medical induction of labor?: Yes Medical induction start date: Mar 04, 2017 Medical induction start time: 08:00 Artificial rupture of membrane: Yes Artificial ROM date: Mar 04, 2017 Artifical ROM time: 08:00 Assessment/Plan Problem List: (1) Third trimester ICD Codes: Z34.93 - Encounter for supervision of normal , unspecified , third trimester (2) Adjustment disorder with depressed mood ICD Codes: F43.21 - Adjustment disorder with depressed mood (3) Opioid abuse ICD Codes: F11.10 - Opioid abuse, uncomplicated (4) Previous delivery, antepartum ICD Codes: O34.219 - Maternal care for unspecified type scar from previous delivery Assessment and Plan continue subutex and buspar through delivery and and pain medication is independent of this. ([place] use of ofirmev, toradol and if needed percocet 10 every four (this will override the subutex and keep subutex going) anticipate IVÁN Hallie is aware that I am leaving for a flight at 5 am. If undelivered will ask Dr. Aguila or Dr. Oakley to step in. Gilma Conley MD Mar 04, 2017 19:32
[2017-03-04] MEDS ORDERED: BUPR8SUB SL (19:40)
[2017-03-04] MEDS ORDERED: BUSP10TA PO (19:40)
[2017-03-04] MEDS ORDERED: CLON.1 PO (19:40)
--- NOTE | 2017-03-04 19:40 | HHI.DCPOC ---
Discharge Care Plan Report Symptoms to Your Doctor -Temperature above 100.5 degrees -Redness, of incision or excessive or foul smelling drainage -Unusual pain or calf pain -Increased vaginal bleeding -Painful or difficulty urinating -Feelings of extreme sadness or anxiety after 2 weeks Goals to Promote Your Health * To prevent worsening of your condition and complications * To maintain your health at the optimal level Directions to Meet Your Goals Take your medications as prescribed Follow your dietary instruction Follow activity as directed Ensure plenty of rest for recovery Drink fluids for hydration Keep your appointments as scheduled Take your immunizations and boosters as scheduled If your symptoms worsen call your PCP, if no PCP go to Urgent Care Center or Emergency Room Smoking is Dangerous to Your Health. Avoid second hand smoke Call the 24-hour crisis hotline for domestic abuse at Gilma Conley MD Mar 04, 2017 19:40
[2017-03-04] MEDS ORDERED: ACETAMINOPHEN 325 MG TAB PO PRN (22:45)
[2017-03-04] MEDS ORDERED: BUPIVACAINE HCL PF 0.25% 10 ML VIAL ONE (23:13)
[2017-03-04] MEDS ORDERED: LIDOCAINE 2%/EPINEPHrine PF 1:200,000 20ML SDV ONE (23:13)
[2017-03-04] MEDS ORDERED: ceFAZolin 2 GM PREMIX 50 ML IV SCH (23:15)
[2017-03-05] VITALS (17 sets, daily range): BP systolic 94–146; BP diastolic 50–80; PULSE 104–135; RESP 16–26; TEMP 97.5–102; O2SAT 96–98
[2017-03-05] MEDS: fentaNYL 2MCG-BUPIV 0.125% 100 ML EPIDURAL SCH (00:20)
[2017-03-05] MEDS ORDERED: OXYTOCIN 30 UNITS-500ML PREMIX 500 ML IV ONE (01:00)
[2017-03-05] MEDS ORDERED: SODIUM CHLORIDE 0.9% FLUSH 10 ML FLUSH IV FLUSH PRN (01:00)
[2017-03-05] MEDS ORDERED: ACETAMINOPHEN 1000 MG/100 ML 100 ML IV ONE (01:00)
[2017-03-05] MEDS ORDERED: SIMETHICONE 80 MG CHEWABLE TAB PO PRN (01:00)
[2017-03-05] MEDS ORDERED: ZOLPIDEM TARTRATE 5 MG TAB PO PRN (01:00)
[2017-03-05] MEDS ORDERED: ONDANSETRON HCL 4 MG/2 ML VIAL IV PUSH PRN (01:00)
[2017-03-05] MEDS ORDERED: oxyCODONE/ACETAMINOPHEN 5 MG/325 MG TAB PO PRN (01:00)
[2017-03-05] MEDS ORDERED: KETOROLAC TROMETHAMINE 60 MG/2 ML (IM) VIAL IM PRN (01:00)
[2017-03-05] MEDS ORDERED: ACETAMINOPHEN 325 MG TAB PO PRN (01:00)
--- NOTE | 2017-03-05 01:00 | PD.LABORPN ---
Subjective Subjective Has been comfortable with her epidural febrile and feeling warm Objective Vital Signs Vital Signs Date Time Temp Pulse Resp B/P (MAP) Pulse Ox O2 Delivery O2 Flow Rate FiO2 03/05/17 00:35 18 03/05/17 00:30 130 104/58 (73) 03/05/17 00:20 20 03/05/17 00:03 20 03/05/17 00:00 122 114/50 (71) 03/04/17 23:58 102.0 03/04/17 23:45 20 03/04/17 23:30 137 120/61 (80) 03/04/17 23:18 128 126/70 (88) 03/04/17 23:15 20 03/04/17 23:00 129 121/68 (85) 03/04/17 22:52 102.0 03/04/17 22:33 20 03/04/17 22:30 124 121/62 (81) 03/04/17 22:04 20 03/04/17 22:01 128 123/81 (95) 03/04/17 21:30 100.2 03/04/17 21:30 128 20 119/65 (83) 03/04/17 21:00 105 03/04/17 21:00 138/61 (86) 03/04/17 20:45 18 03/04/17 20:30 107 03/04/17 20:30 126/72 (90) 03/04/17 20:01 118/90 (99) 03/04/17 20:01 106 03/04/17 20:00 18 03/04/17 19:45 101 133/74 (93) 03/04/17 19:30 105/75 (85) 03/04/17 19:30 102 03/04/17 19:30 18 03/04/17 19:15 132 106/60 (75) 03/04/17 19:09 16 03/04/17 19:01 120 101/43 (62) 03/04/17 18:45 117 116/62 (80) 03/04/17 18:30 98.2 115 102/58 (73) 03/04/17 18:26 16 03/04/17 18:25 118 03/04/17 18:25 107/66 (80) 03/04/17 18:20 111/63 (79) 03/04/17 18:20 104 03/04/17 18:15 128 126/64 (84) 03/04/17 18:15 104 03/04/17 18:12 100 128/69 (88) 03/04/17 18:10 112 125/56 (79) 03/04/17 18:10 96 03/04/17 18:07 102 149/79 (102) 03/04/17 18:05 99 03/04/17 18:00 109 03/04/17 17:55 99 03/04/17 17:53 153/90 (111) 03/04/17 17:53 95 03/04/17 17:50 103 03/04/17 17:45 107 Objective 8-9 /90/-1 with caput and knot on head FHR 180's with diminished variability and small variables UCs every 2 minutes off pitocin and adequate Weeks Gestation: 39 Gest Age Assessed Date: Mar 04, 2017 Pt started active labor?: Yes Active labor start date: Mar 04, 2017 Active labor start time: 08:00 Medical induction of labor?: Yes Medical induction start date: Mar 04, 2017 Medical induction start time: 08:00 Artificial rupture of membrane: Yes Artificial ROM date: Mar 04, 2017 Artifical ROM time: 08:00 Assessment/Plan Problem List: (1) Third trimester ICD Codes: Z34.93 - Encounter for supervision of normal , unspecified , third trimester (2) Adjustment disorder with depressed mood ICD Codes: F43.21 - Adjustment disorder with depressed mood (3) Opioid abuse ICD Codes: F11.10 - Opioid abuse, uncomplicated (4) Previous delivery, antepartum ICD Codes: O34.219 - Maternal care for unspecified type scar from previous delivery Assessment and Plan no descent in last several hours. Concern over category 2-3 strip No loss of station but no descent despite IUPC documented adequate labor. Very febrile despite ancef and tylenol. Do not feel will deliver vaginally within the hour and therefore will proceed with repeat section. Will do a TAP block after delivered. Gilma Conley MD Mar 05, 2017 01:00
[2017-03-05] MEDS ORDERED: MORPHINE SULFATE PF 5 MG/10 ML VIAL ONE (01:04)
--- NOTE | 2017-03-05 01:09 | PD.OB.DELI ---
Procedure Note Section Procedure Pre Op Diagnosis: (1) tachycardia affecting management of mother (2) Failure of descent in labor, delivered, current hospitalization (3) Adjustment disorder with depressed mood (4) Opioid abuse (5) Third trimester (6) Previous delivery, antepartum Post Op Diagnosis: (1) Adjustment disorder with depressed mood (2) Opioid abuse (3) Third trimester (4) tachycardia affecting management of mother (5) Failure of descent in labor, delivered, current hospitalization (6) Previous delivery, antepartum Performed by Gilma Conley Procedure: Repeat Low Transverse Sec Indication for delivery: Nonreassuring heart tracing Informed consent obtained: For anesthesia, For procedure Confirmed correct: Patient, Procedure, Site, Time-out taken Anesthesia: Epidural, Other (TAP block) Medication prior to procedure: As documented in eMAR Monitoring during procedure: Blood pressure monitoring, doppler, Pulse oximetry Urinary catheter: Inserted using sterile technique, To dependent drainage, ml urine output Sterile preparation: Duraprep, In usual fashion Position: Supine with wedge to right side Operative Features Skin Incision: Pfannenstiel Uterine Incision: Low transverse w/knife / blunt ext Membranes Ruptured: Previously Presentation: Other (left occiput transverse with significant cone) Delivery date: Mar 05, 2017 Delivery time: 01:59 Delivery of infant: Assisted : Male One Minute : 9 Five Minute : 9 Weight: 6 1 Status of : Viable, Cord blood, Umbilical cord, Nursery present Placenta delivered: Intact, Sent to pathology Medications: Antibiotics, Oxytocin Estimated blood loss: 500 Procedure tolerated: Well Maternal Complications: Fever Maternal Condition: Stable Condition: Stable (dictated) Procedure in detail dictated anticipate Gilma Vergara MD Mar 05, 2017 01:09
[2017-03-05] MEDS ORDERED: DEXMEDETOMIDINE HCL 200 MCG/2 ML VIAL ONE (01:39)
[2017-03-05] MEDS ORDERED: BUPIVACAINE HCL PF 0.25% 30 ML VIAL ONE (01:39)
[2017-03-05] MEDS ORDERED: EPINEPHrine HCL PF/SF (1:1000) 1 MG/ML AMP I-OCULAR ONE (01:40)
[2017-03-05] MEDS ORDERED: DEXAMETHASONE SOD PHOS PF 10 MG/ML VIAL ONE (01:40)
[2017-03-05] MEDS: oxyCODONE/ACETAMINOPHEN 5 MG/325 MG TAB PO PRN ×3 (09:51→20:19)
[2017-03-05] MEDS: LACTATED RINGER'S 1000 ML INJ 1,000 ML IV SCH ×2 (10:00→18:18)
[2017-03-05] MEDS: SODIUM CHLORIDE 0.9% FLUSH 10 ML FLUSH IV FLUSH SCH (10:00)
[2017-03-05] MEDS ORDERED: OXYTOCIN 30 UNITS-500ML PREMIX 500 ML IV PRN (11:00)
[2017-03-05] MEDS: busPIRone HCL 10 MG TAB PO SCH ×2 (11:05→23:48)
[2017-03-05] MEDS: BUPRENORPHINE HCL 8 MG SUBLINGUAL TAB SL SCH ×4 (11:06→23:48)
[2017-03-05] MEDS: SERTRALINE HCL 100 MG TAB PO SCH (11:06)
[2017-03-05] MEDS ORDERED: LIDOCAINE 2%/EPINEPHrine PF 1:200,000 20ML SDV INFIL ONE (12:00)
[2017-03-05] MEDS ORDERED: LACTATED RINGER'S 1000 ML INJ 1,000 ML IV ONE (12:00)
[2017-03-05] MEDS ORDERED: ONDANSETRON HCL 4 MG/2 ML VIAL IV ONE (12:00)
[2017-03-05] MEDS ORDERED: KETOROLAC TROMETHAMINE 30 MG/ML (IVP) VIAL IV PUSH ONE (12:00)
[2017-03-05] MEDS ORDERED: DEXAMETHASONE SOD PHOS 4 MG/ML VIAL IV ONE (12:00)
[2017-03-05] MEDS ORDERED: OXYTOCIN 10 UNIT/ML AMP IV ONE (12:00)
[2017-03-05] MEDS ORDERED: PHENYLEPH/NS 1000 MCG/10 ML SYR IV ONE (12:00)
[2017-03-05] MEDS: IBUPROFEN 600 MG TAB PO PRN ×2 (14:28→20:19)
[2017-03-05] MEDS: DOCUSATE SODIUM 50 MG/SENNA 8.6 MG TAB PO PRN (20:18)
[2017-03-05] MEDS: cloNIDine HCL 0.1 MG TAB PO PRN (23:47)
[2017-03-06] MEDS: oxyCODONE/ACETAMINOPHEN 5 MG/325 MG TAB PO PRN ×6 (01:24→22:02)
[2017-03-06 04:00] VITALS: BP 109/69; PULSE 103; RESP 18; O2SAT 97
[2017-03-06] MEDS: cloNIDine HCL 0.1 MG TAB PO PRN ×2 (05:42→19:45)
[2017-03-06] MEDS: IBUPROFEN 600 MG TAB PO PRN ×4 (05:42→23:32)
[2017-03-06] MEDS: BUPRENORPHINE HCL 8 MG SUBLINGUAL TAB SL SCH ×5 (05:42→21:49)
[2017-03-06 05:54] LABS: AUTOMATED NEUTROPHIL # 18.2 TH/MM3 (1.8-7.7); BASOPHIL % 0.1 % (0.0-2.0); EOSINOPHIL % 0.1 % (0.0-4.0); HEMATOCRIT 23.3 % (35.0-46.0); LYMPH % 14.3 % (9.0-44.0); LYMPHOCYTE # 3.3 TH/MM3 (1.0-4.8); MEAN CORPUSCULAR HEMOGLOBIN 28.5 PG (27.0-34.0); MEAN CORPUSCULAR HGB CONC 34.3 % (32.0-36.0); MEAN PLATELET VOLUME 7.6 FL (7.0-11.0); MONOCYTE # 1.4 TH/MM3 (0-0.9); NEUT % 79.5 % (16.0-70.0); PLATELET COUNT 194 TH/MM3 (150-450); RED CELL DISTRIBUTION WIDTH 14.5 % (11.6-17.2); WHITE BLOOD COUNT 22.9 TH/MM3 (4.0-11.0)
[2017-03-06 08:00] VITALS: BP 99/65; PULSE 114; RESP 18; TEMP 97.8
--- NOTE | 2017-03-06 08:45 | HHI.OB ---
Subjective Post Operative Day: 1 Remarks complains of pain not adequately controlled despite maintenance suboxone and addition of Percocet & motrin; wants to know what other alternatives; pt is ambulating around room, talking on her cell phone and holding infant in no acute distress when c/o pain Objective Vitals/I&O Vital Signs Date Time Temp Pulse Resp B/P (MAP) Pulse Ox O2 Delivery O2 Flow Rate FiO2 03/06/17 04:00 103 18 109/69 (82) 97 03/05/17 23:57 98.2 113 18 146/74 (98) 96 03/05/17 20:00 97.5 104 20 138/77 (97) 97 03/05/17 16:00 98.1 106 22 133/70 (91) 03/05/17 15:30 97.7 109 18 135/77 (96) Result Diagram: 03/06/17 0500 Objective Remarks GENERAL: Well-nourished, well-developed patient. CARDIOVASCULAR: Regular rate and rhythm without murmurs, gallops, or rubs. RESPIRATORY: Breath sounds equal bilaterally. No accessory muscle use. ABDOMEN/GI: Abdomen soft, non-tender, bowel sounds present. Incision: bandage Clean, dry and intact. Fundus: Firm, non-tender at umbilicus. GENITOURINARY: Light bleeding. EXTREMITIES: No cyanosis or edema, non-tender, without signs of DVT. Medications and IVs Current Medications Medications (Trade) Dose Ordered Sig/Eddie Route Start Time Stop Time Status Last Admin Oxytocin 500 ml @ 100 mls/hr UNSCH X1 PRN IV 03/05/17 11:00 03/06/17 10:59 (NS Flush) 2 ml BID IV FLUSH 03/05/17 09:00 03/05/17 10:00 (NS Flush) 2 ml UNSCH PRN IV FLUSH 03/05/17 01:00 (Mylicon Chew) 80 mg QID PRN PO 03/05/17 01:00 (Tylenol) 650 mg Q6H PRN PO 03/05/17 01:00 (Motrin) 600 mg Q6H PRN PO 03/05/17 01:00 03/06/17 05:42 (Percocet 5-325 Mg) 1 tab Q4H PRN PO 03/05/17 01:00 (Percocet 5-325 Mg) 2 tab Q4H PRN PO 03/05/17 01:00 03/06/17 05:41 (Opal-Colace) 2 tab Q12H PRN PO 03/05/17 01:00 03/05/17 20:18 (Ambien) 5 mg HS PRN PO 03/05/17 01:00 (M-M-R Ii Inj) 0.5 ml ONCE ONCE SQ 03/06/17 16:00 03/06/17 16:01 (Boostrix Inj) 0.5 ml ONCE ONCE IM 03/06/17 16:00 03/06/17 16:01 03/05/17 20:20 (Zofran Inj) 4 mg Q6H PRN IV PUSH 03/05/17 01:00 (Zoloft) 100 mg DAILY PO 03/05/17 09:00 03/05/17 11:06 (Catapres) 0.1 mg Q6H PRN PO 03/05/17 01:00 03/06/17 05:42 (Flu (Quadrivalent) Vaccine Inj) 0.5 ml ONCE ONCE IM 03/06/17 10:00 03/06/17 10:01 03/05/17 20:30 (Buspar) 10 mg Q12H PO 03/06/17 11:00 (Buprenorphine) 4 mg 0900,1200,1800,2100 SL 03/06/17 09:00 Assessment/Plan Problem List: (1) S/P repeat low transverse ICD Codes: Z98.891 - History of uterine scar from previous surgery Status: Acute (2) Adjustment disorder with depressed mood ICD Codes: F43.21 - Adjustment disorder with depressed mood Status: Chronic (3) Opioid abuse ICD Codes: F11.10 - Opioid abuse, uncomplicated Status: Chronic (4) Previous delivery, antepartum ICD Codes: O34.219 - Maternal care for unspecified type scar from previous delivery Status: Chronic Assessment and Plan pt of Dr. Conley's, on subutex therapy for h/o opioid addiction, POD#1 for repeat LTCD after failed TOLAC POD#1 states pain not well controlled, will contact Dr. Conley to see if any additional recommendations; pt ambulating, voiding, walking around room, pain complaint does not match situation under bili lights not meeting d/c criteria anticipate d/c POD#3 Discharge Planning POD#3 Jessie Perdue MD Mar 06, 2017 08:45
[2017-03-06] MEDS: SODIUM CHLORIDE 0.9% FLUSH 10 ML FLUSH IV FLUSH SCH (09:00)
[2017-03-06] MEDS: DOCUSATE SODIUM 50 MG/SENNA 8.6 MG TAB PO PRN (09:46)
[2017-03-06] MEDS: SERTRALINE HCL 100 MG TAB PO SCH (09:46)
[2017-03-06] MEDS ORDERED: INFLUENZA VIRUS VACCINE (QUADRIVALENT) 0.5 ML SYR IM ONE (10:00)
[2017-03-06] MEDS: busPIRone HCL 10 MG TAB PO SCH ×2 (11:40→23:32)
[2017-03-06] MEDS ORDERED: MEASLES, MUMPS, RUBELLA VACCINE 0.5 ML VIAL SQ ONE (16:00)
[2017-03-06] MEDS ORDERED: DIPHTH/TETANUS/ACEL PERTUSSIS (BOOSTER) 0.5 ML VIAL/PFS IM ONE (16:00)
[2017-03-06 19:45] VITALS: BP 131/73; PULSE 97; RESP 16; TEMP 97.6
[2017-03-07] MEDS: DOCUSATE SODIUM 50 MG/SENNA 8.6 MG TAB PO PRN ×2 (02:49→15:47)
[2017-03-07] MEDS: oxyCODONE/ACETAMINOPHEN 5 MG/325 MG TAB PO PRN ×5 (02:50→19:56)
[2017-03-07] MEDS: IBUPROFEN 600 MG TAB PO PRN ×3 (07:12→21:34)
[2017-03-07] MEDS ORDERED: PERC5TAB12 PO (07:58)
[2017-03-07 08:00] VITALS: BP 115/67; PULSE 88; RESP 16; TEMP 98.1; O2SAT 97
--- NOTE | 2017-03-07 08:04 | HHI.OB ---
Subjective Post Operative Day: 2 Remarks doing well, pain she states is elevated but also states she feels well to go home, in no distress, slept well, VB < menses, TPO no n/v, + flatus. Objective Vitals/I&O Vital Signs Date Time Temp Pulse Resp B/P (MAP) Pulse Ox O2 Delivery O2 Flow Rate FiO2 03/06/17 19:45 97.6 97 16 131/73 (92) 03/06/17 08:00 97.8 114 18 03/06/17 08:00 99/65 (76) Result Diagram: 03/06/17 0500 Objective Remarks GENERAL: Well-nourished, well-developed patient. CARDIOVASCULAR: Regular rate and rhythm without murmurs, gallops, or rubs. RESPIRATORY: Breath sounds equal bilaterally. No accessory muscle use. ABDOMEN/GI: Abdomen soft, non-tender, bowel sounds present. Incision: Clean, dry and intact. Fundus: Firm, non-tender at umbilicus. GENITOURINARY: Light bleeding. EXTREMITIES: No cyanosis or edema, non-tender, without signs of DVT. Medications and IVs Current Medications Medications (Trade) Dose Ordered Sig/Eddie Route Start Time Stop Time Status Last Admin (NS Flush) 2 ml BID IV FLUSH 03/05/17 09:00 03/05/17 10:00 (NS Flush) 2 ml UNSCH PRN IV FLUSH 03/05/17 01:00 (Mylicon Chew) 80 mg QID PRN PO 03/05/17 01:00 03/07/17 07:12 (Tylenol) 650 mg Q6H PRN PO 03/05/17 01:00 (Motrin) 600 mg Q6H PRN PO 03/05/17 01:00 03/07/17 07:12 (Percocet 5-325 Mg) 1 tab Q4H PRN PO 03/05/17 01:00 (Percocet 5-325 Mg) 2 tab Q4H PRN PO 03/05/17 01:00 03/07/17 07:11 (Opal-Colace) 2 tab Q12H PRN PO 03/05/17 01:00 03/07/17 02:49 (Ambien) 5 mg HS PRN PO 03/05/17 01:00 (Zofran Inj) 4 mg Q6H PRN IV PUSH 03/05/17 01:00 (Zoloft) 100 mg DAILY PO 03/05/17 09:00 03/06/17 09:46 (Catapres) 0.1 mg Q6H PRN PO 03/05/17 01:00 03/06/17 19:45 (Buspar) 10 mg Q12H PO 03/06/17 11:00 03/06/17 23:32 (Buprenorphine) 4 mg 0900,1200,1800,2100 SL 03/06/17 09:00 03/06/17 21:49 Assessment/Plan Problem List: (1) S/P repeat low transverse ICD Codes: Z98.891 - History of uterine scar from previous surgery Status: Acute (2) Adjustment disorder with depressed mood ICD Codes: F43.21 - Adjustment disorder with depressed mood Status: Chronic (3) Opioid abuse ICD Codes: F11.10 - Opioid abuse, uncomplicated Status: Chronic (4) Previous delivery, antepartum ICD Codes: O34.219 - Maternal care for unspecified type scar from previous delivery Status: Chronic Assessment and Plan 27 yo s/p scheduled RLTCS after failed TOLAC 1. POD#2: AF, VSS, states pain not well controlled but clinically not in pain, pt opioid dependent as an outpt, will d/c with #24 percocet for breakthrough and pt to continue her home subutex 16mg /d in divided doses. Clinically ready for d/c and pt seems motivated to do so. Discussed and postop expectations and precautions. Anticipate d/c today vs tomorrow. Post op CBC noted, pt asymptomatic. - desires circ, did not prepay, she will arrange as an outpatient. 2. MDD / GIOVANNI: continue home meds Eric Greenwood MD Mar 07, 2017 08:04
[2017-03-07] MEDS: SERTRALINE HCL 100 MG TAB PO SCH (08:58)
[2017-03-07] MEDS: BUPRENORPHINE HCL 8 MG SUBLINGUAL TAB SL SCH ×4 (08:58→21:34)
[2017-03-07] MEDS: busPIRone HCL 10 MG TAB PO SCH ×2 (11:46→23:37)
[2017-03-07] MEDS: cloNIDine HCL 0.1 MG TAB PO PRN (18:26)
[2017-03-07 20:00] VITALS: BP 97/60; PULSE 104; RESP 16; TEMP 98.9; O2SAT 97
[2017-03-08] MEDS: oxyCODONE/ACETAMINOPHEN 5 MG/325 MG TAB PO PRN ×3 (01:28→09:31)
[2017-03-08] MEDS: IBUPROFEN 600 MG TAB PO PRN (05:30)
--- NOTE | 2017-03-08 07:51 | HHI.OB ---
Subjective Post Operative Day: 3 Remarks doing well, ready for d/c home Objective Vitals/I&O Vital Signs Date Time Temp Pulse Resp B/P (MAP) Pulse Ox O2 Delivery O2 Flow Rate FiO2 03/07/17 20:00 97/60 (72) 03/07/17 20:00 98.9 104 16 97 03/07/17 08:00 98.1 88 16 115/67 (83) 97 Result Diagram: 03/06/17 0500 Objective Remarks GENERAL: Well-nourished, well-developed patient. CARDIOVASCULAR: Regular rate and rhythm without murmurs, gallops, or rubs. RESPIRATORY: Breath sounds equal bilaterally. No accessory muscle use. ABDOMEN/GI: Abdomen soft, non-tender, bowel sounds present. Incision: Clean, dry and intact. Fundus: Firm, non-tender at umbilicus. GENITOURINARY: Light bleeding. EXTREMITIES: No cyanosis or edema, non-tender, without signs of DVT. Medications and IVs Current Medications Medications (Trade) Dose Ordered Sig/Eddie Route Start Time Stop Time Status Last Admin (NS Flush) 2 ml BID IV FLUSH 03/05/17 09:00 03/05/17 10:00 (NS Flush) 2 ml UNSCH PRN IV FLUSH 03/05/17 01:00 (Mylicon Chew) 80 mg QID PRN PO 03/05/17 01:00 03/07/17 07:12 (Tylenol) 650 mg Q6H PRN PO 03/05/17 01:00 (Motrin) 600 mg Q6H PRN PO 03/05/17 01:00 03/08/17 05:30 (Percocet 5-325 Mg) 1 tab Q4H PRN PO 03/05/17 01:00 (Percocet 5-325 Mg) 2 tab Q4H PRN PO 03/05/17 01:00 03/08/17 05:31 (Opal-Colace) 2 tab Q12H PRN PO 03/05/17 01:00 03/07/17 15:47 (Ambien) 5 mg HS PRN PO 03/05/17 01:00 (Zofran Inj) 4 mg Q6H PRN IV PUSH 03/05/17 01:00 (Zoloft) 100 mg DAILY PO 03/05/17 09:00 03/07/17 08:58 (Catapres) 0.1 mg Q6H PRN PO 03/05/17 01:00 03/07/17 18:26 (Buspar) 10 mg Q12H PO 03/06/17 11:00 03/07/17 23:37 (Buprenorphine) 4 mg 0900,1200,1800,2100 SL 03/06/17 09:00 03/07/17 21:34 Assessment/Plan Problem List: (1) S/P repeat low transverse ICD Codes: Z98.891 - History of uterine scar from previous surgery Status: Acute (2) Adjustment disorder with depressed mood ICD Codes: F43.21 - Adjustment disorder with depressed mood Status: Chronic (3) Opioid abuse ICD Codes: F11.10 - Opioid abuse, uncomplicated Status: Chronic (4) Previous delivery, antepartum ICD Codes: O34.219 - Maternal care for unspecified type scar from previous delivery Status: Chronic Assessment and Plan 27 yo s/p scheduled RLTCS after failed TOLAC 1. POD#2: AF, VSS, d/c home, likely for stay close stay b/c monitoring for withdrawls b/c of maternal opioid dependence. 2. MDD / GIOVANNI: continue home meds Eric Greenwood MD Mar 08, 2017 07:51
[2017-03-08 08:00] VITALS: BP 107/67; PULSE 86; RESP 16; TEMP 97.9; O2SAT 97
[2017-03-08] MEDS: SERTRALINE HCL 100 MG TAB PO SCH (09:18)
[2017-03-08] MEDS: BUPRENORPHINE HCL 8 MG SUBLINGUAL TAB SL SCH (09:18)
== END 2017-03-08 11:31 | disposition home or self-care (01) | DRG 765 ==
LOC: H2EA 06:39 → H1EA 03-05 03:31
PROVIDERS: ADMIT Obstetrics & Gynecology; ATTEND Obstetrics & Gynecology
PROC: 3E033VJ Introduction of Other Hormone into Peripheral Vein, Percutaneous Approach (ICD-10-PCS; 2017-03-04)
PROC: 10907ZC Drainage of Amniotic Fluid, Therapeutic from Products of Conception, Via Natural or Artificial Opening (ICD-10-PCS; 2017-03-04)
PROC: 10H07YZ Insertion of Other Device into Products of Conception, Via Natural or Artificial Opening (ICD-10-PCS; 2017-03-04)
PROC: 10D00Z1 Extraction of Products of Conception, Low, Open Approach (ICD-10-PCS; principal; 2017-03-05)
DX: O34.211 Maternal care for low transverse scar from previous cesarean delivery (principal); F11.20 Opioid dependence, uncomplicated; O99.324 Drug use complicating childbirth; O66.41 Failed attempted vaginal birth after previous cesarean delivery; O76 Abnormality in fetal heart rate and rhythm complicating labor and delivery; F43.10 Post-traumatic stress disorder, unspecified; O32.4XX0 Maternal care for high head at term, not applicable or unspecified; F43.21 Adjustment disorder with depressed mood; R50.9 Fever, unspecified; O99.344 Other mental disorders complicating childbirth; Z3A.39 39 weeks gestation of pregnancy; Z23 Encounter for immunization; Z37.0 Single live birth; Z72.0 Tobacco use; F32.9 Major depressive disorder, single episode, unspecified
CPT/HCPCS: 59025; 80307; 81001; 85025; 86850; 86900; 86901; 87081; 87150; 87491; 87591; 88307; 90686; 90715; J0171; J0690; J1100; J1885; J2274; J2370; J2405; J2590; J3010; J7120; Q2038